=== PATIENT | male | born 1975 | race Caucasian/White ===

== ENCOUNTER 2016-10-23 22:35 | Emergency (ER) ==
[2016-10-23] MEDS ORDERED: ALBUTEROL 0.083% NEB NEB STA (22:39)
[2016-10-23] MEDS ORDERED: ALBUTEROL 0.083% NEB NEB ONE (22:41)
[2016-10-23] MEDS ORDERED: SOLU-MEDROL 125 MG IVP STA (22:42)
[2016-10-23] MEDS ORDERED: SODIUM BICARBONATE 8.4% IVP STA (22:42)
--- NOTE | 2016-10-23 22:46 | ED.PDOC ---
General ED Provider: Dr. MARIMAR GOODWIN Chief Complaint: Inhalation Stated Complaint: Pateint state that while he Was cleaning bathroom, poured bleach in container with CLR (calcium, little traverse, rust remover) and water, then the liquid started bubbling and patient inhaled fumes. Unable to catch breath and extremely short of air. Had immediate abdominal cramping and coughing. Time Seen by Physician: 22:46 Mode of Arrival: Wheelchair Information Source: Patient, Family Exam Limitations: No limitations Primary Care Provider: TY LOONEY Nursing and Triage Documentation Reviewed and Agree: Yes Respiratory Complaint Exam - Shortness of Air Complaint/Exam Onset/Duration: 2 hours Symptoms Are: Still present Timing: Constant Initial Severity: Moderate Current Severity: Severe Character: Reports: Dyspnea at rest Aggravating: Reports: None Alleviating: Reports: Bronchodilators, Oxygen Associated Signs and Symptoms: Reports: Cough, Wheezing Related History: Reports: Obesity Pulmonary Embolism Risk Factors: Reports: None Cardiac Risk Factors: Reports: Prior MD Tuberculosis Risk Factors: Reports: None Home Oxygen Use: No Recent Stress Test: No Recent Echo/LV Function: No Respiratory Distress: Severe Stridor Present: No Tracheal Deviation: No Subcutaneous Emphysema: No Accessory Muscle Use: No Retractions: Not Present Diminished Breath Sounds: Yes Differential Diagnoses: COPD Exacerbation Review of Systems - Review Of Systems Constitutional: Reports: No symptoms Eyes: Reports: No symptoms Ears, Nose, Mouth, Throat: Reports: No symptoms Respiratory: Reports: Cough, Short of air, Stridor, Wheezing Cardiac: Reports: No symptoms GI: Reports: No symptoms : Reports: No symptoms Musculoskeletal: Reports: No symptoms Skin: Reports: No symptoms Neurological: Reports: No symptoms Endocrine: Reports: No symptoms Hematologic/Lymphatic: Reports: No symptoms All Other Systems: Reviewed and Negative Past Medical History - Past Medical History Endocrine: Reports: Dyslipidemia Cardiovascular: Reports: Hypertension Respiratory: Reports: None Hematological: Reports: None Gastrointestinal: Reports: None Genitourinary: Reports: Kidney stones Neuro/Psych: Reports: Anxiety, Depression, Other (Alcoholism ) Musculoskeletal: Reports: Arthritis, Back Pain Cancer: Reports: None Other Pertinent Past Medical History: back pain--knee injuries carpal tunnel rt hand-- - Surgical History General Surgical History: Reports: Orthopedic (back pain--knee injuries carpal tunnel rt hand--) - Family History Family History: Reports: Unknown - Social History Smoking Status: Current every day smoker Hx Substance Use: No Alcohol Screening: Heavy Physical Exam - Physical Exam Appearance: Ill-appearing, Obese Ill-appearing: Moderate Eyes: DAE, EOMI, Conjunctiva clear Neck: Supple Respiratory: Airway patent, Wheezes, Retractions Cardiovascular: RRR, Pulses normal, No rub, No murmur, Tachycardia GI/: Soft, Nontender, No masses, Bowel sounds normal, No Organomegaly Musculoskeletal: Normal strength, ROM intact, No edema, No calf tenderness Skin: Warm, Dry, Normal color Psychiatric: Anxious Interpretation - Radiology Interpretation Radiology Interpretation By: ED Physician Radiology Results: Negative Exam Interpreted: Portable CXR Re-Evaluation - Re-Evaluation Time of Re-Evaluation: 01:50 Status: Improved Lungs: Other (still with wheezing) Physician Notification - Case Discussed Physician Notified: Dr Barney Time of Notification: 02:00 (Declined - may need a [employer] Practitioner. ) Physician Notified: Dr Wang Time of Notification: 02:10 (accepted ) Critical Care Note - Critical Care Note Total Time (mins): 40 Comments: called poison controlled got instructions to use bicarb inhalation for treatment. Course - Course Hematology/Chemistry: 10/23/16 23:04 10/23/16 23:04 Orders, Labs, Meds: Lab Review 10/23/16 10/24/16 23:04 00:32 WBC 10.35 H RBC 4.88 Hgb 14.5 Hct 44.7 MCV 91.6 MCH 29.7 MCHC 32.4 RDW Coeff of Debbie 12.9 Plt Count 253 Immature Gran % (Auto) 0.4 Neut % (Auto) 47.7 Lymph % (Auto) 39.7 Gordon % (Auto) 7.9 Eos % (Auto) 3.4 Baso % (Auto) 0.9 Immature Gran # (Auto) 0.0 Neut # 4.9 Lymph # 4.1 H Gordon # 0.8 Eos # 0.4 Baso # 0.1 Sodium 141 Potassium 4.4 Chloride 100 Carbon Dioxide 29 Anion Gap 16.4 BUN 15 Creatinine 1.05 Estimated GFR (MDRD) 77.00 BUN/Creatinine Ratio 14.28 Glucose 117 H Calcium 9.0 Total Bilirubin 0.27 AST 36 ALT 53 Alkaline Phosphatase 62 Total Creatine Kinase 159 CK-MB (CK-2) 1.2 CK-MB (CK-2) % 0.26311 Troponin I < 0.0100 Total Protein 7.3 Albumin 4.0 Globulin 3.3 Albumin/Globulin Ratio 1.21 Orders Category Date Time Status ABG DRAW REQUEST Stat CARDIO 10/23/16 22:45 Completed EKG-(ED ONLY) Stat CARDIO 10/24/16 00:03 Completed NEBULIZER TREATMENT Stat CARDIO 10/23/16 22:40 Completed NEBULIZER TREATMENT Stat CARDIO 10/23/16 23:36 Completed NEBULIZER TREATMENT Stat CARDIO 10/24/16 00:01 Completed ED IV/MEDIPORT/POWERPORT .ONCE EMERGENCY 10/23/16 22:42 Active ABG Stat LAB 10/23/16 22:44 Ordered CBC W/ AUTO DIFF Stat LAB 10/23/16 23:04 Completed COMPREHENSIVE METABOLIC PANEL Stat LAB 10/23/16 23:04 Completed CREATINE KINASE Stat LAB 10/24/16 00:32 Completed TROPONIN I Stat LAB 10/24/16 00:32 Completed 0.9 % Sodium Chloride [Saline Flush] MEDS 10/23/16 22:42 Ordered 1 syr IVF PRN PRN Albuterol Sulfate 0.083% Neb [Albuterol 0.083% Neb] MEDS 10/23/16 22:41 Discontinued 1 vial NEB .STK-MED ONE Albuterol Sulfate 0.083% Neb [Albuterol 0.083% Neb] MEDS 10/23/16 22:39 Discontinued 1 vial NEB ONCE STA Diphenhydramine Inj [Benadryl] MEDS 10/23/16 23:46 Discontinued 25 mg IVP ONCE STA Hydromorphone HCl [Dilaudid 1 mg/ml Syringe] MEDS 10/24/16 02:19 Discontinued 1 mg IVP ONCE STA Ipratropium/Albuterol Neb [Duoneb] MEDS 10/23/16 23:34 Discontinued 1 vial NEB .STK-MED ONE Ipratropium/Albuterol Neb [Duoneb] MEDS 10/23/16 23:35 Discontinued 1 vial NEB ONCE STA Lidocaine HCl/Pf [Lidocaine 1 % Amp 5 ml (Sutures)] MEDS 10/23/16 23:26 Discontinued 5 ml .ROUTE .STK-MED ONE Methylprednisolone Sod Succ/Pf [Solu-Medrol 125 mg] MEDS 10/23/16 22:42 Discontinued 125 mg IVP ONCE STA Morphine Sulfate [Morphine 4 mg/ml Syringe] MEDS 10/23/16 23:35 Discontinued 4 mg IVP ONCE STA Sodium Bicarb 7.5% [Sodium Bicarbonate 7.5%] MEDS 10/23/16 22:56 Discontinued 44.6 meq .ROUTE .STK-MED ONE Sodium Bicarb 8.4% [Sodium Bicarbonate 8.4%] MEDS 10/23/16 22:42 Discontinued 50 meq IVP ONCE STA CHEST, 1V AP ONLY Stat RADS 10/23/16 22:45 Taken Medications Generic Name Dose Route Start Last Admin Trade Name Freq PRN Reason Stop Dose Admin Sodium Chloride 1 syr 10/23/16 22:42 Saline Flush IVF PRN PRN To flush IV Discontinued Medications Generic Name Dose Route Start Last Admin Trade Name Freq PRN Reason Stop Dose Admin Albuterol Sulfate 1 vial 10/23/16 22:39 10/23/16 22:43 Albuterol 0.083% Neb [facility] 10/23/16 22:40 1 vial ONCE STA Administration Albuterol/Ipratropium 1 vial 10/23/16 23:35 10/24/16 00:08 Duoneb NEB 10/23/16 23:36 1 vial ONCE STA Administration Diphenhydramine HCl 25 mg 10/23/16 23:46 10/24/16 00:41 Benadryl IVP 10/23/16 23:47 25 mg ONCE STA Administration Hydromorphone HCl 1 mg 10/24/16 02:19 10/24/16 03:36 Dilaudid 1 Mg/Ml Syringe IVP 10/24/16 02:20 1 mg ONCE STA Administration Methylprednisolone Sodium Succinate 125 mg 10/23/16 22:42 10/23/16 23:03 Solu-Medrol 125 Mg IVP 10/23/16 22:43 125 mg ONCE STA Administration Morphine Sulfate 4 mg 10/23/16 23:35 10/23/16 23:47 Morphine 4 Mg/Ml Syringe IVP 10/23/16 23:36 4 mg ONCE STA Administration Sodium Bicarbonate 50 meq 10/23/16 22:42 10/23/16 23:02 Sodium Bicarbonate 8.4% IVP 10/23/16 22:43 Not Given ONCE STA Vital Signs: Temp Pulse Resp BP Pulse Ox 10/23/16 23:30 89 L 10/23/16 22:40 99.1 F 95 H 28 H 121/64 88 L Departure - Departure Time of Disposition: 02:00 Disposition: TSF SHORT-TRM HOSP Discharge Problem: Inhalation injury, Acute chemical bronchitis Condition: Good Pt referred to PMD for follow-up: Yes Allergies/Adverse Reactions: Allergies No Known Allergies Allergy (Verified 10/24/16 01:15) Home Medications: Ambulatory Orders Carisoprodol [Soma] 350 mg PO TID 11/22/15 Gabapentin 600 mg PO TID 11/22/15 Hydrocodone/Acetaminophen [Hydrocodon-Acetaminophn 10-325] 1 each PO QID Ibuprofen 800 mg PO TID 11/22/15 Loratadine [Claritin] 10 mg PO DAILY 11/22/15 Metoprolol Succinate 50 mg PO BID 11/22/15 Citalopram Hydrobromide [Celexa] 40 mg PO DAILY #30 08/30/16 Diazepam [Valium] 10 mg PO QID #120 08/30/16 Zolpidem Tartrate [Ambien] 10 mg PO BEDTIME #30 08/30/16 Pt. Stabilized Within Hospital's Capabilities/Transferred To: [facility] Disposition Discussed With: Patient, Family
[2016-10-23] MEDS: SODIUM BICARBONATE 7.5% ONE (23:00)
[2016-10-23 23:06] LABS: BASOPHILS # (AUTO) 0.1 K/uL (0-0.2); BASOPHILS % (AUTO) 0.9 % (0.0-3.0); EOSINOPHILS # (AUTO) 0.4 K/ul (0.0-0.7); EOSINOPHILS % (AUTO) 3.4 % (0.0-7.0); HEMATOCRIT 44.7 % (42.0-52.0); HEMOGLOBIN 14.5 g/dl (14.0-18.0); IMMATURE GRANULOCYTE % (AUTO) 0.4 % (0.0-5.0); LYMPHOCYTES # (AUTO) 4.1 K/uL (0.60-3.4); LYMPHOCYTES % (AUTO) 39.7 (10.0-50.0); MEAN CORPUSCULAR HEMOGLOBIN 29.7 pg (27.0-31.0); MEAN CORPUSCULAR HGB CONC 32.4 (31.8-35.4); MEAN CORPUSCULAR VOLUME 91.6 fl (80.0-94.0); MONOCYTES # (AUTO) 0.8 K/uL (0.4-2.0); MONOCYTES % (AUTO) 7.9 (0-10); NEUTROPHILS # (AUTO) 4.9 K/ul (2.0-6.9); NEUTROPHILS % (AUTO) 47.7; PLATELET COUNT 253 10^3/uL (140-440); RED BLOOD COUNT 4.88 10^6/ul (4.70-6.10); WHITE BLOOD COUNT 10.35 K/ul (4.2-10.2)
[2016-10-23 23:25] LABS: ALBUMIN/GLOBULIN RATIO 1.21; ANION GAP 16.4; BILIRUBIN,TOTAL 0.27 mg/dL (0.00-1.20); BUN/CREATININE RATIO 14.28; CREATININE 1.05 mg/dL (0.60-1.10); POTASSIUM 4.4 mmol/L (3.5-5.1); TOTAL PROTEIN 7.3 g/dL (6.4-8.2)
[2016-10-23] MEDS ORDERED: LIDOCAINE 1 % AMP 5 ML (SUTURES) ONE (23:26)
--- NOTE | 2016-10-23 23:33 | ED.PDOC ---
Procedures - IV/Art Line Insertion Location: left wrist Type of Line: Peripheral IV Invasive Line/IV Catheter Gauge: 20 Number of Attempts: 1 Blood Return Positive: Yes Invasive Line/IV Flushes Without Difficulty: Yes (lidocaine 1% plain - .1ml intradermal) Conscious Sedation - Pre-op Assessment Surgical History: carpal tunnel rt hand-- - Medical History Past Medical History: Hypertension, Kidney Stones Other History: CHRONIC BACK PAIN
[2016-10-23] MEDS ORDERED: DUONEB NEB ONE (23:34)
[2016-10-23] MEDS ORDERED: MORPHINE 4 MG/ML SYRINGE IVP STA (23:35)
[2016-10-23] MEDS: DUONEB NEB STA (23:38)
[2016-10-23] MEDS ORDERED: BENADRYL IVP STA (23:46)
[2016-10-24] MEDS: SODIUM BICARBONATE 7.5% ONE (00:07)
[2016-10-24] MEDS: DUONEB NEB STA (00:08)
[2016-10-24 01:15] VITALS: BP 121/64; TEMP 99.1; BMI 44.1
[2016-10-24 01:20] LABS: CREATINE KINASE 159 U/L
[2016-10-24 01:23] LABS: CREATINE KINASE MB 1.2 ng/ml (0.0-3.6)
[2016-10-24] MEDS ORDERED: DILAUDID 1 MG/ML SYRINGE IVP STA (02:19)
--- NOTE | 2016-10-24 07:48 | DI ---
EXAM: Single view of the chest. History: Short of breath Comparison: Chest radiograph 11/22/2015 Findings: Heart size is normal. No focal consolidation. No appreciable pleural fluid and no pneum othorax. No acute osseous abnormalities. Impression: No acute cardiopulmonary process.
== END 2016-10-24 03:50 | disposition short-term general hospital (02) ==
LOC: ED 22:35
DX: J68.0 Bronchitis and pneumonitis due to chemicals, gases, fumes and vapors (principal); T54.91XA Toxic effect of unspecified corrosive substance, accidental (unintentional), initial encounter; R10.9 Unspecified abdominal pain; I25.2 Old myocardial infarction; I10 Essential (primary) hypertension; E78.5 Hyperlipidemia, unspecified; F17.210 Nicotine dependence, cigarettes, uncomplicated
CPT/HCPCS: 36415; 80053; 82550; 82553; 84484; 85025; 93005; 93010; 94640; 96372; 96374; 96375; 99285

== ENCOUNTER 2016-10-29 09:51 | Inpatient (IN) ==
[2016-10-29 09:56] VITALS: BMI 47.0
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
[2016-10-29 10:39] LABS: ABG BASE EXCESS 5 (-2.0-2.0); ABG PCO2 45.9 mmHg (35-45); ABG PH 7.414 (7.35-7.45)
[2016-10-29 10:40] LABS: ABG HCO3 29.3 (22.0-26.0); ABG TCO2 31 (22.0-28.0)
[2016-10-29 10:41] LABS: BASOPHILS # (AUTO) 0.1 K/uL (0-0.2); BASOPHILS % (AUTO) 0.7 % (0.0-3.0); EOSINOPHILS # (AUTO) 0.3 K/ul (0.0-0.7); EOSINOPHILS % (AUTO) 2.2 % (0.0-7.0); HEMATOCRIT 44.2 % (42.0-52.0); HEMOGLOBIN 13.9 g/dl (14.0-18.0); IMMATURE GRANULOCYTE % (AUTO) 1.2 % (0.0-5.0); LYMPHOCYTES # (AUTO) 2.6 K/uL (0.60-3.4); LYMPHOCYTES % (AUTO) 19.2 (10.0-50.0); MEAN CORPUSCULAR HEMOGLOBIN 29.7 pg (27.0-31.0); MEAN CORPUSCULAR HGB CONC 31.4 (31.8-35.4); MEAN CORPUSCULAR VOLUME 94.4 fl (80.0-94.0); MONOCYTES # (AUTO) 0.9 K/uL (0.4-2.0); MONOCYTES % (AUTO) 6.3 (0-10); NEUTROPHILS # (AUTO) 9.7 K/ul (2.0-6.9); NEUTROPHILS % (AUTO) 70.4; PLATELET COUNT 233 10^3/uL (140-440); RED BLOOD COUNT 4.68 10^6/ul (4.70-6.10); WHITE BLOOD COUNT 13.72 K/ul (4.2-10.2)
[2016-10-29 11:01] LABS: ALBUMIN 3.6 g/dL (3.4-5.0); ALBUMIN/GLOBULIN RATIO 0.92; ANION GAP 17.4; BILIRUBIN,TOTAL 0.69 mg/dL (0.00-1.20); BUN/CREATININE RATIO 18.42; CALCIUM 9.7 mg/dL (8.2-10.2); CREATININE 1.14 mg/dL (0.60-1.10); POTASSIUM 4.4 mmol/L (3.5-5.1); TOTAL PROTEIN 7.5 g/dL (6.4-8.2)
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
[2016-10-29] MEDS ORDERED: DILAUDID 1 MG/ML SYRINGE IVP STA (12:05)
[2016-10-29] MEDS ORDERED: DILAUDID 2 MG/ML SYRINGE IM STA (12:24)
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
[2016-10-29] MEDS ORDERED: SUDAFED PO STA (13:40)
[2016-10-29] MEDS ORDERED: CLARITIN PO STA (13:47)
[2016-10-29] MEDS ORDERED: ZITHROMAX 500 MG in SODIUM CHLORIDE 250 ML IV STA (14:29)
[2016-10-29] MEDS ORDERED: PROAIR HFA IH PRN (14:50)
--- NOTE | 2016-10-29 14:50 | CT ---
EXAM: CTA CHEST (PE PROTOCOL) HISTORY: Shortness of breath, positive D-dimer TECHNIQUE: CTA with intravenous contrast. 3-mm axial sections. Coronal and sagittal reformations. 3-D reconstructions. 125 mL Omnipaque. COMPARISON: Same day unenhanced CT thorax FINDINGS: Image quality is degraded by low lung volumes and significant respiratory motion. In addition, ther e was less than optimal contrast opacification of the pulmonary arterial tree. There is at least on e tiny pulmonary arterial filling defect of the right lower lobe vessels for which an embolus cannot be excluded. A good portion of the mid to distal lower lobe pulmonary arteries cannot be adequatel y evaluated secondary to the motion. Consider follow-up CTA if indicated. Thoracic aorta within normal limits. Normal heart size. Previously described right-sided pleural t hickening is unchanged which may represent a combination of loculated pleural fluid and thickening o f the pleura proper. There is no significant vascular congestion or central interstitial edema. No pneumothorax. Redemonstration of fatty liver. IMPRESSION: Cannot exclude a small right lower lobe pulmonary arterial embolus. Limited exam. Ple ural fluid and / or thickening on the right is unchanged.
[2016-10-29] MEDS ORDERED: NON-FORMULARY MEDICATION (Gabapentin [Gabapentin] 600 MG) PO SCH (15:00)
[2016-10-29] MEDS ORDERED: XANAX PO SCH (15:00)
[2016-10-29] MEDS ORDERED: LOVENOX SUBCUT STA (15:01)
[2016-10-29] MEDS: LIDODERM PATCH 5% TP SCH (16:49)
[2016-10-29] MEDS: NORCO 10-325 PO SCH ×2 (16:49→20:21)
[2016-10-29] MEDS: SOMA PO SCH ×2 (16:50→20:20)
[2016-10-29] MEDS ORDERED: NON-FORMULARY MEDICATION (Diazepam [Valium] 10 MG) PO SCH ×22 (17:00)
[2016-10-29] MEDS: VALIUM PO PRN (17:10)
[2016-10-29] MEDS: ROCEPHIN 1 GM in SODIUM CHLORIDE 50 ML IV SCH (19:32)
[2016-10-29] MEDS: SODIUM CHLORIDE 1,000 ML IV SCH (19:33)
[2016-10-29] MEDS: TESSALON PERLES PO PRN (19:39)
[2016-10-29] MEDS: CELEXA PO SCH (20:18)
[2016-10-29] MEDS: MUCINEX PO SCH (20:19)
[2016-10-29] MEDS: NEURONTIN PO SCH (20:20)
[2016-10-29] MEDS: LOPRESSOR PO SCH (20:20)
[2016-10-29] MEDS: SOLU-MEDROL 125 MG IVP SCH (20:22)
[2016-10-29] MEDS ORDERED: MUCINEX PO SCH (21:00)
[2016-10-29] MEDS ORDERED: TOPROL XL PO SCH (21:00)
[2016-10-29] MEDS ORDERED: ZOLPIDEM TARTRATE 20 MG PO SCH (21:00)
[2016-10-29] MEDS: TORADOL IVP PRN (21:26)
[2016-10-29] MEDS: TUSSIONEX PO PRN (21:33)
[2016-10-29] MEDS: XANAX PO SCH (23:16)
[2016-10-29] MEDS: AMBIEN PO PRN (23:16)
[2016-10-29] MEDS: DUONEB NEB SCH (23:23)
[2016-10-30] MEDS ORDERED: NORCO 10-325 ONE (00:13)
[2016-10-30] MEDS: NORCO 10-325 PO SCH ×6 (00:13→21:19)
[2016-10-30] MEDS: LIDODERM PATCH 5% TP SCH ×2 (04:26→14:00)
[2016-10-30] MEDS: SOLU-MEDROL 125 MG IVP SCH ×3 (04:35→21:18)
[2016-10-30] MEDS: DUONEB NEB SCH ×4 (05:01→23:14)
[2016-10-30 05:30] LABS: BASOPHILS % (AUTO) 0.4 % (0.0-3.0); EOSINOPHILS % (AUTO) 0.3 % (0.0-7.0); HEMATOCRIT 39.5 % (42.0-52.0); HEMOGLOBIN 12.3 g/dl (14.0-18.0); IMMATURE GRANULOCYTE % (AUTO) 0.8 % (0.0-5.0); LYMPHOCYTES # (AUTO) 1.5 K/uL (0.60-3.4); LYMPHOCYTES % (AUTO) 12.9 (10.0-50.0); MEAN CORPUSCULAR HEMOGLOBIN 28.9 pg (27.0-31.0); MEAN CORPUSCULAR HGB CONC 31.1 (31.8-35.4); MEAN CORPUSCULAR VOLUME 92.7 fl (80.0-94.0); MONOCYTES # (AUTO) 0.3 K/uL (0.4-2.0); NEUTROPHILS # (AUTO) 9.3 K/ul (2.0-6.9); NEUTROPHILS % (AUTO) 82.6; PLATELET COUNT 206 10^3/uL (140-440); RED BLOOD COUNT 4.26 10^6/ul (4.70-6.10); WHITE BLOOD COUNT 11.21 K/ul (4.2-10.2)
[2016-10-30 05:41] LABS: ALBUMIN 3.1 g/dL (3.4-5.0); ALBUMIN/GLOBULIN RATIO 0.86; BILIRUBIN,TOTAL 0.32 mg/dL (0.00-1.20); BUN/CREATININE RATIO 22.1; CREATININE 0.95 mg/dL (0.60-1.10); TOTAL PROTEIN 6.7 g/dL (6.4-8.2)
[2016-10-30] MEDS: TORADOL IVP PRN ×2 (06:08→14:01)
[2016-10-30] MEDS: ROCEPHIN 1 GM in SODIUM CHLORIDE 50 ML IV SCH (08:49)
[2016-10-30] MEDS: CLARITIN PO SCH (08:50)
[2016-10-30] MEDS: NEURONTIN PO SCH ×3 (08:50→21:19)
[2016-10-30] MEDS: XANAX PO SCH ×3 (08:50→21:19)
[2016-10-30] MEDS: SOMA PO SCH ×3 (08:51→21:19)
[2016-10-30] MEDS: MUCINEX PO SCH ×2 (08:51→21:19)
[2016-10-30] MEDS: LOPRESSOR PO SCH ×2 (08:52→21:19)
[2016-10-30] MEDS ORDERED: CLARITIN PO SCH (09:00)
[2016-10-30] MEDS ORDERED: NON-FORMULARY MEDICATION (Citalopram Hydrobromide [Celexa] 40 MG) PO SCH ×22 (09:00)
[2016-10-30] MEDS ORDERED: CELEXA PO SCH (09:00)
[2016-10-30] MEDS: TUSSIONEX PO PRN ×2 (09:12→18:46)
[2016-10-30] MEDS: VALIUM PO PRN ×2 (09:27→14:59)
[2016-10-30] MEDS: ZITHROMAX 500 MG in SODIUM CHLORIDE 250 ML IV SCH (10:46)
[2016-10-30] MEDS: SODIUM CHLORIDE 1,000 ML IV SCH (10:57)
[2016-10-30] MEDS: LOVENOX SUBCUT SCH (10:57)
[2016-10-30] MEDS: TYLENOL PO PRN (10:58)
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
[2016-10-30] MEDS: TESSALON PERLES PO PRN (16:38)
[2016-10-30] MEDS: CELEXA PO SCH (21:19)
[2016-10-31] MEDS: VALIUM PO PRN ×4 (00:24→21:07)
[2016-10-31] MEDS: NORCO 10-325 PO SCH ×7 (00:24→21:06)
[2016-10-31] MEDS: SODIUM CHLORIDE 1,000 ML IV SCH ×2 (03:14→22:55)
[2016-10-31] MEDS: SOLU-MEDROL 125 MG IVP SCH ×3 (04:54→21:27)
[2016-10-31] MEDS: DUONEB NEB SCH ×4 (05:16→23:41)
[2016-10-31 05:32] LABS: BASOPHILS % (AUTO) 0.2 % (0.0-3.0); HEMATOCRIT 35.8 % (42.0-52.0); HEMOGLOBIN 11.3 g/dl (14.0-18.0); IMMATURE GRANULOCYTE % (AUTO) 2.4 % (0.0-5.0); LYMPHOCYTES # (AUTO) 1.4 K/uL (0.60-3.4); LYMPHOCYTES % (AUTO) 9.1 (10.0-50.0); MEAN CORPUSCULAR HEMOGLOBIN 29.4 pg (27.0-31.0); MEAN CORPUSCULAR HGB CONC 31.6 (31.8-35.4); MONOCYTES # (AUTO) 0.8 K/uL (0.4-2.0); MONOCYTES % (AUTO) 5.4 (0-10); NEUTROPHILS # (AUTO) 12.7 K/ul (2.0-6.9); NEUTROPHILS % (AUTO) 82.9; PLATELET COUNT 244 10^3/uL (140-440); RED BLOOD COUNT 3.85 10^6/ul (4.70-6.10); WHITE BLOOD COUNT 15.31 K/ul (4.2-10.2)
[2016-10-31 06:01] LABS: ALBUMIN 3.2 g/dL (3.4-5.0); ALBUMIN/GLOBULIN RATIO 0.97; ANION GAP 11.1; BILIRUBIN,TOTAL 0.27 mg/dL (0.00-1.20); BUN/CREATININE RATIO 16.48; CALCIUM 9.1 mg/dL (8.2-10.2); CREATININE 0.91 mg/dL (0.60-1.10); POTASSIUM 5.1 mmol/L (3.5-5.1); TOTAL PROTEIN 6.5 g/dL (6.4-8.2)
[2016-10-31] MEDS: NEURONTIN PO SCH ×3 (09:00→21:06)
[2016-10-31] MEDS: LOPRESSOR PO SCH ×2 (09:00→21:07)
[2016-10-31] MEDS: SOMA PO SCH ×3 (09:00→21:07)
[2016-10-31] MEDS: XANAX PO SCH ×3 (09:01→21:07)
[2016-10-31] MEDS: MUCINEX PO SCH ×2 (09:01→21:06)
[2016-10-31] MEDS: LIDODERM PATCH 5% TP SCH (09:01)
[2016-10-31] MEDS: CLARITIN PO SCH (09:01)
[2016-10-31] MEDS: LOVENOX SUBCUT SCH (09:02)
[2016-10-31] MEDS: ROCEPHIN 1 GM in SODIUM CHLORIDE 50 ML IV SCH (09:03)
[2016-10-31] MEDS: TUSSIONEX PO PRN ×2 (09:24→21:09)
[2016-10-31] MEDS: TYLENOL PO PRN ×2 (10:03→21:06)
[2016-10-31] MEDS: TORADOL IVP PRN ×2 (10:04→20:18)
[2016-10-31] MEDS: ZITHROMAX 500 MG in SODIUM CHLORIDE 250 ML IV SCH (11:51)
--- NOTE | 2016-10-31 12:19 | DI ---
EXAM: Two radiographic images of the chest. Comparison: 10/29/2016. Reason for study: Cough, shortness of breath, pneumonia. FINDINGS: No pneumothorax or focal consolidation. There is a layering density in the right lower l obe adjacent to the right heart border that likely represents the previously described pleural thick ening/pleural fluid seen on CT imaging from 2 days ago. There is mild degenerative disease of the t horacic spine with anterior osteophytosis. The cardiac silhouette is not enlarged. IMPRESSION: No acute cardiopulmonary findings.
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
[2016-10-31] MEDS: TESSALON PERLES PO PRN ×2 (13:52→21:09)
[2016-10-31] MEDS: CELEXA PO SCH (21:05)
[2016-10-31] MEDS: AMBIEN PO PRN (21:08)
[2016-11-01] MEDS: NORCO 10-325 PO SCH ×5 (00:53→17:17)
[2016-11-01] MEDS: VALIUM PO PRN ×3 (03:01→15:22)
[2016-11-01] MEDS: TORADOL IVP PRN ×2 (03:01→12:27)
[2016-11-01] MEDS: TESSALON PERLES PO PRN ×2 (04:51→12:28)
[2016-11-01] MEDS: SOLU-MEDROL 125 MG IVP SCH (04:52)
[2016-11-01] MEDS: DUONEB NEB SCH ×3 (05:10→17:15)
[2016-11-01 06:11] LABS: BASOPHILS # (AUTO) 0.1 K/uL (0-0.2); BASOPHILS % (AUTO) 0.4 % (0.0-3.0); HEMATOCRIT 35.7 % (42.0-52.0); HEMOGLOBIN 11.2 g/dl (14.0-18.0); IMMATURE GRANULOCYTE % (AUTO) 4.5 % (0.0-5.0); LYMPHOCYTES # (AUTO) 1.8 K/uL (0.60-3.4); LYMPHOCYTES % (AUTO) 12.4 (10.0-50.0); MEAN CORPUSCULAR HEMOGLOBIN 29.5 pg (27.0-31.0); MEAN CORPUSCULAR HGB CONC 31.4 (31.8-35.4); MEAN CORPUSCULAR VOLUME 93.9 fl (80.0-94.0); MONOCYTES # (AUTO) 0.9 K/uL (0.4-2.0); MONOCYTES % (AUTO) 6.1 (0-10); NEUTROPHILS # (AUTO) 10.8 K/ul (2.0-6.9); NEUTROPHILS % (AUTO) 76.6; PLATELET COUNT 276 10^3/uL (140-440); WHITE BLOOD COUNT 14.07 K/ul (4.2-10.2)
[2016-11-01 06:40] LABS: ALBUMIN 3.2 g/dL (3.4-5.0); ALBUMIN/GLOBULIN RATIO 1.03; ANION GAP 14.9; BILIRUBIN,TOTAL 0.3 mg/dL (0.00-1.20); BUN/CREATININE RATIO 16.98; CALCIUM 9.1 mg/dL (8.2-10.2); CREATININE 1.06 mg/dL (0.60-1.10); POTASSIUM 4.9 mmol/L (3.5-5.1); TOTAL PROTEIN 6.3 g/dL (6.4-8.2)
[2016-11-01] MEDS ORDERED: HUMULIN R SUBCUT STA (08:24)
[2016-11-01] MEDS ORDERED: HUMULIN R ONE (08:28)
[2016-11-01] MEDS ORDERED: MEDROL DOSEPAK PO SCH (09:00)
[2016-11-01] MEDS: NEURONTIN PO SCH ×2 (09:03→15:22)
[2016-11-01] MEDS: LOPRESSOR PO SCH (09:03)
[2016-11-01] MEDS: CLARITIN PO SCH (09:04)
[2016-11-01] MEDS: LIDODERM PATCH 5% TP SCH (09:05)
[2016-11-01] MEDS: ROCEPHIN 1 GM in SODIUM CHLORIDE 50 ML IV SCH (09:05)
[2016-11-01] MEDS: XANAX PO SCH ×2 (09:05→15:22)
[2016-11-01] MEDS: SOMA PO SCH ×2 (09:05→15:21)
[2016-11-01] MEDS: LOVENOX SUBCUT SCH (09:06)
[2016-11-01] MEDS: MUCINEX PO SCH (09:07)
[2016-11-01 09:38] LABS: CHOL/HDL RATIO 5.3 (4.5-6.4)
[2016-11-01] MEDS: TUSSIONEX PO PRN (09:45)
[2016-11-01] MEDS: MEDROL DOSEPAK PO SCH ×3 (10:38→17:19)
[2016-11-01] MEDS: HUMULIN R SUBCUT PRN ×2 (12:27→17:40)
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
[2016-11-01 18:23] VITALS: BP 146/79; TEMP 97.7
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
--- NOTE | 2016-12-06 15:18 | PN ---
DATE OF SERVICE: 10/31/16 SUBJECTIVE: The patient was admitted with the community acquired pneumonia and pleurisy. He is feeling better, still has some cough and congestion. REVIEW OF SYSTEMS: CONSTITUTIONAL: No fever, no chills. HEENT: Normal. ENDOCRINE: No weight gain, no weight loss. CVS: No angina symptoms. No CHF symptoms. No palpitations. No atypical chest pain for CAD. No shortness of breath. No PND, no orthopnea. RESPIRATORY: No cough, no hemoptysis. GI: No nausea, no vomiting. No abdominal pain. : No hematuria. No polyuria. MUSCULOSKELETAL:. No joint swelling. PSYCHIATRIC: Not anxious. No depression. No suicidal thoughts. No homicidal thoughts. SKIN: Intact. No rash. PHYSICAL EXAMINATION: V/S: Blood pressure 160/74, respiratory rate 18, heart rate 68, temperature 97.7 and saturation is 96%. HEENT: Normocephalic, atraumatic. Ears, eyes, nose and throat normal. NECK: Supple. No JVD, no carotid bruit. No lymphadenopathy. LUNGS: Decreased and some crackles. No rales or rhonchi. HEART: S1, S2 normal. No S3. No murmur, gallop or regurgitation. ABDOMEN: Soft, nontender. Bowel sounds active. No rigidity. No rebound or guarding. No CVA tenderness. EXTREMITIES: No clubbing, cyanosis or pedal edema. MUSCULOSKELETAL: No joint swelling. NEUROLOGIC: Awake, alert, oriented times three. No focal deficit. LYMPHATIC: No lymph nodes palpable. SKIN: Intact. LABS: WBC 15.31, hgb 11.3, plt count 244, sodium 138, potassium 5.1, chloride 104, Bicarb 28, BUN 15, creatinine 0.91 and glucose 334. ASSESSMENT: 1. Community acquired pneumonia 2. Pleurisy 3. Dyslipidemia 4. Hypertension 5. Obesity 6. Fatty liver 7. Anxiety/ Depression 8. Alcoholism 9. Arthritis 10.Lumbar surgery 11.Knee surgery 12.Carpel Tunnel surgery PLAN: 1. Continue IV Azithromycin 2. Rocephin 3. Solu-Medrol 4. Out of bed to chair activity as tolerated. TIME SPENT: More than 30 minutes MTDD
== END 2016-11-01 19:35 | disposition home or self-care (01) | DRG 949 ==
LOC: ED 09:51 → MEDSURG B 15:11
PROVIDERS: ADMIT Emergency Medicine; ATTEND Emergency Medicine
DX: T54.91XD Toxic effect of unspecified corrosive substance, accidental (unintentional), subsequent encounter (principal); J68.0 Bronchitis and pneumonitis due to chemicals, gases, fumes and vapors; R07.9 Chest pain, unspecified; R09.1 Pleurisy; E11.9 Type 2 diabetes mellitus without complications; R09.02 Hypoxemia; R79.1 Abnormal coagulation profile; I10 Essential (primary) hypertension; G89.29 Other chronic pain; M47.9 Spondylosis, unspecified; F41.9 Anxiety disorder, unspecified; E66.01 Morbid (severe) obesity due to excess calories; R25.2 Cramp and spasm; F17.210 Nicotine dependence, cigarettes, uncomplicated; Z79.899 Other long term (current) drug therapy
CPT/HCPCS: 36415; 80053; 80061; 82803; 82962; 83036; 85025; 85379; 87040; 93005; 93010; 94640; 96365; 96372; 99223; 99233; 99239; 99284

== ENCOUNTER 2016-12-27 11:55 | Outpatient (CLI) ==
[2016-12-27 12:25] LABS: BASOPHILS # (AUTO) 0.1 K/uL (0-0.2); BASOPHILS % (AUTO) 0.9 % (0.0-3.0); EOSINOPHILS # (AUTO) 0.3 K/ul (0.0-0.7); HEMATOCRIT 46.6 % (42.0-52.0); HEMOGLOBIN 15.7 g/dl (14.0-18.0); IMMATURE GRANULOCYTE % (AUTO) 0.6 % (0.0-5.0); LYMPHOCYTES # (AUTO) 2.6 K/uL (0.60-3.4); LYMPHOCYTES % (AUTO) 23.4 (10.0-50.0); MEAN CORPUSCULAR HGB CONC 33.7 (31.8-35.4); MEAN CORPUSCULAR VOLUME 89.1 fl (80.0-94.0); MONOCYTES # (AUTO) 0.7 K/uL (0.4-2.0); MONOCYTES % (AUTO) 6.3 (0-10); NEUTROPHILS # (AUTO) 7.2 K/ul (2.0-6.9); NEUTROPHILS % (AUTO) 65.8; PLATELET COUNT 301 10^3/uL (140-440); RED BLOOD COUNT 5.23 10^6/ul (4.70-6.10); WHITE BLOOD COUNT 10.92 K/ul (4.2-10.2)
[2016-12-27 12:54] LABS: ALBUMIN 4.1 g/dL (3.4-5.0); ALBUMIN/GLOBULIN RATIO 1.05; ANION GAP 14.2; BILIRUBIN,TOTAL 0.33 mg/dL (0.00-1.20); BUN/CREATININE RATIO 14.28; CALCIUM 9.6 mg/dL (8.2-10.2); CHOL/HDL RATIO 6.9 (4.5-6.4); CREATININE 0.84 mg/dL (0.60-1.10); POTASSIUM 4.2 mmol/L (3.5-5.1); URIC ACID 5.6 mg/dL (2.6-7.2)
--- NOTE | 2016-12-27 13:02 | DI ---
Examination: Single radiographic image of the chest with four radiographic images of the right ribs . Comparison: 10/31/2016. Reason for study: Chronic chest wall pain. FINDINGS: No pneumothorax, pleural effusion, or focal consolidation. The cardiac silhouette is not enlarged. No displaced rib fractures are seen within the right hemithorax. Impression: 1. No acute cardiopulmonary findings. 2. No displaced right-sided rib fractures.
== END 2016-12-27 11:56 | disposition home or self-care (01) ==
LOC: RAD 11:55
DX: R07.89 Other chest pain (principal); E11.9 Type 2 diabetes mellitus without complications; F41.9 Anxiety disorder, unspecified; G89.4 Chronic pain syndrome
CPT/HCPCS: 36415; 80053; 80061; 83036; 84443; 84550; 85025

== ENCOUNTER 2017-04-12 12:38 | Emergency (ER) ==
[2017-04-12 12:52] VITALS: BP 136/81; TEMP 98.3; BMI 42.5
[2017-04-12] MEDS ORDERED: TORADOL IM STA (12:56)
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
== END 2017-04-12 14:47 | disposition home or self-care (01) ==
LOC: ED 12:38
DX: S16.1XXA Strain of muscle, fascia and tendon at neck level, initial encounter (principal); M54.9 Dorsalgia, unspecified; V89.2XXA Person injured in unspecified motor-vehicle accident, traffic, initial encounter; F17.210 Nicotine dependence, cigarettes, uncomplicated
CPT/HCPCS: 96372; 99283

== ENCOUNTER 2018-01-16 09:58 | Outpatient (CLI) ==
[2017-08-26 13:44] VITALS: BMI 41.2
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
== END 2018-01-16 09:59 | disposition home or self-care (01) ==
LOC: RAD 09:58
PROVIDERS: ATTEND Physician Assistant
DX: M54.5 Low back pain (principal)

== ENCOUNTER 2018-01-28 07:36 | Outpatient (CLI) ==
[2017-08-26 13:44] VITALS: BMI 41.2
--- NOTE | 2018-01-28 08:50 | US ---
EXAM: Found abdomen limited right upper quadrant HISTORY: Elevated liver enzymes COMPARISON: None TECHNIQUE: Limited ultrasound abdomen right upper quadrant was performed FINDINGS: Evaluation technically limited due to areas of shadowing artifact and patient body habitus . Liver is enlarged. Liver diffusely increased in echogenicity. Portions of the liver obscured sec ondary to shadowing artifact. Main portal vein patent with direction of flow. No biliary duct dilat ion with common bile duct measuring 0.4 cm. Gallbladder relatively contracted. No gallbladder wall thickening, pericholecystic fluid, or shadowing gallstones. IMPRESSION: Hepatomegaly. Hepatic steatosis.
== END 2018-01-28 07:37 | disposition home or self-care (01) ==
LOC: RAD 07:36
PROVIDERS: ATTEND Physician Assistant
DX: R74.8 Abnormal levels of other serum enzymes (principal)

== ENCOUNTER 2018-05-29 16:14 | Outpatient (CLI) ==
[2017-08-26 13:44] VITALS: BMI 41.2
== END 2018-05-29 16:15 ==
LOC: LAB 16:14
PROVIDERS: ATTEND Physician Assistant
DX: I10 Essential (primary) hypertension (principal)
CPT/HCPCS: 36415; 80053

== ENCOUNTER 2018-06-16 15:46 | Outpatient (RCR) ==
[2017-08-26 13:44] VITALS: BMI 41.2
--- NOTE | 2018-06-17 10:01 | RS.OPPTEV2 ---
Date of Note: 06/16/18 Visit #: 1 Date of Evaluation: 06/16/18 Payer Source: Medicaid Treatment Diagnosis: Low Back pain History of Condition/Mechanism of Injury:: Patient reports a history of low back pain. He sustained a fracture to the lumbar spine in 2005. He has not been to Pain Management, but says it has been discussed. Reports a history of narcotic use to control pain medication. He has been off of narcotics for approximately 6 months. Prior Level of Function.....Patient was independent with: ADL's, Self Care, Work /Vocation, Caregiving, Ambulation/Mobility, Community Integration/Access Functional Limitations: Sleep, Self Care, ADL's, Reaching, Pushing, Pulling, Lifting, Carrying, Sitting, Standing, Bending, Squatting, Ambulation, Community Access/Integration Current Subjective/complaints:: Patient states he is trying to cope with his back pain while not taking narcotics. States he stretches, which he feels is vital to managing his back pain. Also uses heat and ice when needed. He reports having back pain with any prolonged position. Reports sciatic pain in the left with prolonged standing. States he usually feels better when he is moving. States he is trying to lose weight. Reports he has more problems on the left LE. States the left gets weak to the point that he feels like he has to drag it. Reports at times it feels as if the left LE will buckle. He asks for a HEP that he could work on at home, due to his work schedule and going to counseling. Patient documents on his paperwork that he should be on disability. 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 States his duties include a wide range of activites, and by the end of the day his back pain is severe. Medical History Medical History: Hypertension, Arthritis (UE's, LE's, and back) Surgical History Comments:: Right knee scope, right hand Carpal Tunnel release Smoking Status: Current every day smoker Diagnostic Testing/Imaging:: MRI of lumbar spine on 01/16/18: Impressions: Lumbar spine mild facet arthropathy and minor DDD. Multilevel foraminal narrowing, especially L4-5 foramen. No nerve root compression. No lumbar spine central canal stenosis. Old, mild compression fracture of L1. Hx Home Medications: Suboxone, diclofenac,metropolol,gabapentin, metformin, celexa Patient's Goals: His goal is to get some relief of back pain to make day to day life tolerable. Pain Assessment - Pain Description Pain Location: low back pain Pain Description: Chronic Current Pain Intensity: 6/10 Worst Pain Intensity: 9/10 Functional Outcome Measure Oswestry LBP: 72 - G Codes & Severity Modifier G Codes & Modifier: NA Source of G Code score: NA Gait - Gait Pattern Gait Comments: Patient ambulates without an assistive device with no obvious gait deviations. - ROM Lumbar Flexion: Hand reach to Mid-Shins Sidebending to Left: Reach to Mid-thigh Sidebending to Right: Reach to Mid-thigh Comments: Demonstrates minimal mobility at the lumbar spine with flexion. Sidebending increases discomfort. Extension increases discomfort as well. Bilateral LE AROM is WFL's. - Strength Trunk Rotation: 4 Good Comments: Right LE 5/5 throughout. Left hip 4 to 4+/5, quads and HS 4 to 4+/5, ankle 5/5. - Special Tests SLR Test: Negative Left, Negative Right Seated Dural Stretch Test: Negative Left, Negative Right SI Joint Compression: Negative Palpation Comments:: Patient reports mild discomfort with Central PA's over the lumbar spinous processes. Demonstrates minimal to moderate muscle guarding along the lumbar spine. Sensation - Sensation Right Lower Extremity: Intact/Normal Left Lower Extremity: Intact/Normal Additional Comments: Additional Comments: SLR in supine: right to 40-45 degrees, left to 30-35 degrees. Interventions - Exercise/Activities/Manual Therapy Exercises/Activities: Patient instructed in HEP of HS stretch, lower trunk rotation stretch, pelvic tilts, SLR, and bridging. Discussed SLR and recommended he perform hip flexion on the left leg with the knee bent due to his concerns of the left LE being much weaker. With attempts of explaining HS stretching, patient demonstrates that he stretches at work when he can by standing with his legs apart and bending forward and down towards each leg. Explained to Mr. [place] that those stretches are not necessarily safe for his lumbar spine if he has any disc invovlement. Explained the benefit of HS stretch in supine to keep the spine in a neutral position. His reception agent of the reasoning for the given HS stretch was hendered by his continuous talking. Total minutes of Exercise: X 12 mins Manual Therapy: Na HOME EXERCISE PROGRAM: HS stretch, lower trunk rotation stretch, pelvic tilts, SLR, and bridging. Discussed SLR and recommended he perform hip flexion on the left leg with the knee bent due to his concerns of the left LE being much weaker. - Charges Timed Code Treatment Minutes: 12 mins Total Treatment Time: 50 mins Procedures billed for this date of service:: EVAL Medium, Ex EVALUATION COMPLEXITY LEVEL EVALUATION COMPLEXITY LEVEL: HISTORY: Medium (Chronic LBP with narcotic dependency), EXAM OF BODY SYSTEMS: Medium, CLINICAL PRESENTATION: Medium, CLINICAL DECISION MAKING: Medium Assessment Assessment: Mr. Cuba presents to therapy today with a diagnosis of low back pain. He requests a HEP to work on his own due to his work schedule and also going through counseling as he is trying to go without narcotics. He demonstrates the need for trunk strengthening and HS stretching. Patient Education: Home Exercise Program, Education of Plan of Care Residential Goals Goal #1: Pt demonstrates understanding of HEP. Goal to be met by: 06/18/18 Progress towards goal: Met Plan - Treatment to be Provided Procedures: Therapeutic Exercises, Patient Education Modalities: No Modalities - Treatment Plan Frequency: one time for HEP per patient request Duration: One time treatment ORDER # VISITS AND/OR THROUGH DATE: 06/16/18 - Treatment Code (1) Low back pain Code(s): M54.5 - LOW BACK PAIN Qualifiers: Chronicity: chronic Back pain laterality: unspecified Sciatica presence: unspecified whether sciatica present Qualified Code(s): M54.5 - Low back pain ; G89.29 - Other chronic pain
== END 2018-06-20 23:59 ==
PROVIDERS: ATTEND Physician Assistant
DX: M54.5 Low back pain (principal); G89.29 Other chronic pain

== ENCOUNTER 2018-12-04 08:47 | Outpatient (CLI) ==
[2017-08-26 13:44] VITALS: BMI 41.2
--- NOTE | 2018-12-04 10:52 | US ---
EXAM: ULTRASOUND ABDOMEN COMPLETE HISTORY: Elevated liver enzymes FINDINGS: [place] scale ultrasound and color Doppler was performed. [facility] The liver parenchyma demonstrated diffuse increased sound attenuation which is suggestive of jasen atosis. Focal fatty sparing near the gallbladder fossa. No gallstones or gallbladder sludge. Gallb ladder wall thickness remained within normal limits at 0.22 cm. Common bile duct diameter was normal at 0.39 cm. Visualized pancreas was within normal limits. Inferior vena cava and aorta could not be clearly seen secondary to superimposed bowel. The splenic length is within normal limits at 11.6 cm . The right kidney measured 12.2 cm and below the left kidney 12.6 cm. No hydronephrosis. No ascit es. IMPRESSION: 1. Prominent sized fatty liver. 2. No gallbladder pathology identified.
== END 2018-12-04 08:48 | disposition home or self-care (01) ==
LOC: RAD 08:47
PROVIDERS: ATTEND Internal Medicine Gastroenterology
DX: R74.8 Abnormal levels of other serum enzymes (principal)